=== PATIENT | female | born 1990 | race Caucasian/White ===

== ENCOUNTER 2020-01-22 09:01 | Day surgery (SDC) | payer OTHER, SELFPAY ==
--- NOTE | 2020-01-19 13:06 | PCM.HPOB.BLA ---
- Problem List (1) Sterilization Status: Acute History and Physical Date of Admission: 01/22/20 DATE OF SERVICE: January 05, 2020 ? PROBLEM:?Desires permanent sterilization ? DIAGNOSIS:?Desires permanent sterilization ? PAST SURGICAL HISTORY:? PAST SURGICAL HISTORY PAST SURGICAL HISTORY Procedure Laterality Date ? CHOLECYSTECTOMY ? 03/18/2018 ? ? COLONOSCOPY ? 2002, 2016 ? polypectomy 2002 ? INSERT INTRAUTERINE DEVICE ? 09/16/2014 ? PAST MEDICAL HISTORY:? PAST MEDICAL HISTORY PAST MEDICAL HISTORY Diagnosis Date ? Colon polyp ? ? Depression ? ? SUBJECTIVE:?In a stable relationship of 8 years currently.?.?She is 100% certain that she does not desire children. Her partner is also 100% certain that he does not desire children.? ? SOCIAL HISTORY:? SOCIAL HISTORY Social History ? Tobacco Use ? Smoking status: Never Smoker ? Smokeless tobacco: Never Used Substance Use Topics ? Alcohol use: Yes ? ? Alcohol/week: 5.0 standard drinks ? ? Types: 2 Cans of Beer (12oz) per week ? ? Frequency: 2-3 times a week ? ? Drinks per session: 1 or 2 ? ? Binge frequency: Less than monthly ? ? Comment: 2/week ? Drug use: No ? Allergies: No Known Allergies ? Current Outpatient Medications on File Prior to Visit Medication Sig ? MULTIVITAMIN ORAL Take by mouth. ? buPROPion XL (WELLBUTRIN XL) 300 mg 24 hr tablet Take 1 tablet by mouth once daily. No current facility-administered medications on file prior to visit.? ? ? OBJECTIVE: ? VITALS: BP 120/80 ? Wt 207 lb 3.2 oz (94 kg) ? LMP 12/20/2016 ? BMI 34.48 kg/m? ? HEENT: ?Normocephalic, atraumatic, Mucus membranes moist without lesions. ? NECK: ???Soft and Supple. ?No adenopathy , thyromegaly or bruits. ? SKIN: No lesions. ? CHEST: Clear to auscultation. ?No wheezes or rales. ?Good air exchange. ? HEART: Regular rate and rhythm ?No S3 or S4. ?No gallops or rubs. ? BACK: Nontender with no CVA tenderness. ? ABDOMEN: Soft, non-tender, non-distended, no masses, no hepatosplenomegaly. ? LOWER EXTREMITIES: There was no pitting edema, no palpable cords and no skin changes. ? ? ? ASSESSMENT:?Desires permanent sterilization ? PLAN:?The patient is 100% certain that she does not desire children. She understands the risk of regret. She understands all other forms of control. Discussed laparoscopic bilateral salpingectomy, and IUD removal.?The rationale for the proposed surgery was discussed in addition to risks, benefits, and alternatives. ?General pre- and post-operative care was reviewed. ?Questions were answered. ?After discussion, the patient indicated a desire to proceed with the planned surgery. ? Flu shot given today. ? Kayla Valladares,?DO
[2020-01-22] VITALS (8 sets, daily range): BP systolic 92–123; BP diastolic 66–82; PULSE 59–79; RESP 16; TEMP 36.2–37.2; O2SAT 98–100; BMI 34.0
[2020-01-22 09:22] LABS: Hematocrit 41.6 % (37-47); Hemoglobin 13.4 g/dL (12.0-15.0); Mean Corp Hgb Conc 32.2 g/dL (32-36); Mean Corpuscular Hgb 29.6 pg (27.0-32.0); Mean Platelet Vol. 8.8 fl (6.2-12.0); Platelet Count 272 K/mm3 (150-450); RBC Distribution Width CV 12.5 % (11.6-14.6); RBC Distribution Width SD 41.9 fl (35.1-43.9); Red Blood Count 4.52 M/mm3 (4.2-5.4); White Blood Count 6.7 K/mm3 (4.4-11.0)
[2020-01-22 09:30] LABS: Internal QC Validated? YES +Cl - CLEAR BKGD; Pregnancy, Urine Negative Negative
[2020-01-22] MEDS: Lactated Ringers 1,000 ML 100 ML IV ×2 (09:32→12:16)
--- NOTE | 2020-01-22 10:31 | PCM.DC ---
- Discharge Diagnoses Current Active Problems: Current Active and Chronic Problems Sterilization (Acute) You will use the following diet at home:: No restrictions Your food should be the consistency of: Regular Discharge Activity: May Drive - Once you feel you can slam on a car brake and turn a steerling wheel sharply, May not drive while taking narcotic pain medications. Return to work on:: 01/26/20 May shower in (days): 1 May resume sexual activity in: 1-2 weeks - No tampons, intercourse, tub baths, hot tubs until your bleeding stops Ice area for (Minutes): 15 Weight Bearing Status: Weight bearing as tolerated Lifting Restrictions: No lifting greater than 5-10 lbs for 2 weeks Call your doctor if your incision/area has: Sudden Increased Bleeding, Increased Pain/ Swelling, Increased Redness, Foul Smelling Discharge, Swelling at the incision site Call your doctor if you observe: Fever of 101 or Higher, Inability to urinate, Inability to have a bowel movement, Using more than one pad per hour, Shortness of breath, Dizziness, Fainting spells, Swelling in the ankles, Chest pain, Increased palpitations (irregular heartbeat), Calf discomfort, Uncontrolled pain Suture Line Care: Avoid Pulling/Pushing, Avoid Pinching/Bending Cleanse incision/area with: Soap & Water Allergies/Adverse Reactions: Allergies No Known Allergies Allergy (Verified 01/22/20 09:12) Medications to take at Discharge Mv-Min/Iron/Folic/Calcium/Vitk [Women's Multivitamin Tablet] 1 ea PO DAILY 01/15/20 buPROPion XL [Wellbutrin Xl] 300 mg PO DAILY 01/15/20 Oxycodone HCl/Acetaminophen [Percocet 5/325] 1 tablet PO Q6H PRN PRN 7 Days #5 tablet 01/22/20 The following prescriptions were given: Oxycodone HCl/Acetaminophen [Percocet 5/325] 1 tablet PO Q6H PRN PRN 7 Days #5 tablet PRN Reason: Pain Score 6-10 Transmission Status: Sent to [id number] Orders to be completed after discharge: Type & Screen - PAT ONLY Time Frame: 01/22/20, Facility: [facility], Location: Laboratory Primary Care Physician: Ele Hernandez COMMERCIAL HVAC SERVICE TECHNICIAN, COMMERCIAL HVAC SERVICE TECHNICIAN-C [Primary Care Provider] - Test Results: Test results from this visit will be discussed in further detail at your follow-up appointment, if applicable. Please Follow Up With: Kayla Valladares, When: 1 week
--- NOTE | 2020-01-22 10:35 | FALS_PTH ---
PATIENT: CANDIE HERCULES LOC: [facility] – [place] U#:[id number] AGE/SX: 29/F ROOM: RE01/22/[address]: Dr. Kayla Valladares DO : 1990 BED: DIS: 01/22/2020 SPEC #: [id number] RECD: 01/22/20 13:50 STATUS: GWENDOLYN RAFAT #: [id number] MIR: 01/22/20 10:[address]: Kayla Valladares DEPT: SURGICAL PATHOLOGY RECD BY: Salma Petty ENTERED: 01/23/20 08:28 SP TYPE: FALL TUBES OTHR DR: Ele Hernandez, WEB USER EXPERIENCE STRATEGIST-C Tissues: Fallopian tube Procedures: Surgery Specimen Level II Surgery Specimen Level IV HEADER OPERATION: Laparoscopic salpingectomy PRE-OP DIAGNOSIS: Sterilization TISSUE SUBMITTED: Bilateral fallopian tubes MICROSCOPIC DIAGNOSIS Right and left fallopian tubes, bilateral salpingectomies: Two complete segments of fallopian tubes. One fallopian tube with changes consistent with endometriosis. AM:lisbeth 01/26/20 MICROSCOPIC DESCRIPTION Slides are reviewed. GROSS DESCRIPTION Received in fixative is one container labeled with the patient's name and designated bilateral fallopian tubes. The specimen consists of two fallopian tubes with an average length of 6 cm and has an average diameter of 0.7 cm. Both fallopian tubes have normal fimbriated ends. No mass lesions are identified. Collar Sewer sections are submitted in two cassettes as follows: 1 - one fallopian tube, 2 - the other fallopian tube. / AM:lisbeth 01/23/20 TC:5 CPT: 51090, 96401
[2020-01-22] MEDS: Bupivacaine Mpf 0.5% 30 ML VIAL (10:59)
--- NOTE | 2020-01-22 11:58 | PCM.OPRPT ---
Problem List (1) Sterilization Status: Acute Report of Operation Date of Procedure: 01/22/20 Pre-Operative Diagnosis: Desires permanent sterilization Post-Operative Diagnosis: As above, endometriosis Surgery/Procedure Performed:: Laparoscopic bilateral salpingectomy with removal of paratubal cyst, removal of IUD Description of Surgical Findings:: Normal appearing uterus and bilateral ovaries. The right fallopian tube was normal-appearing. There were adhesions noted of the left fallopian tube. The left fallopian tube was adhered to itself several times, and there was a paratubal cyst noted that ruptured and appeared to be an endometrioma. The left fallopian tube was also adhered to the left ovary. Endometriosis was noted along the left IP ligament. There was endometriosis noted above the uterus and over the bladder. There was endometriosis noted along the right pelvic sidewall. risk control product liability director: other - Adriana Russo MS3 Type of Anesthesia:: General Special Medications: None Specimen's removed: Bilateral fallopian tubes with left paratubal cyst Drains: None Estimated Blood Loss (mL): < 50 cc Fluids Replaced: 1100 cc Description of Procedure: Indications: Requests permanent sterilization. She understands all other options for control. She understands it is permanent and irreversible. She is 100% certain she does not want children. Start time: 1059 Stop time: 1152 The office administrative assistant was present for the entire portion of the case. The office administrative assistant helped by holding the camera and the fallopian tube. The office administrative assistant also helped with the closure of the port sites. Procedure: The patient was taken to the operating room where general anesthesia was induced and adequate. The patient was prepped and draped in the dorsal lithotomy position using yellowfin stirrups. From below a weighted speculum was placed and the anterior lip of the cervix was grasped with a single-tooth tenaculum. Using a ring forceps, the IUD strings were grasped and the IUD was removed easily and noted to be intact. A uterine manipulator was placed. Gloves were then changed and attention was turned to the abdominal portion of the case Marcaine was infiltrated at all port sites. An incision was made infraumbilically to accommodate a 5 mm port. The 5 mm port was inserted using direct visualization with the laparoscope. Once confirmed intraperitoneal, CO2 insufflation was initiated. The patient was then placed in Trendelenburg position. Findings were noted as above. Pictures were taken. A right lateral 5 mm port was placed. A left lateral 5 mm port was placed. The right fallopian tube was followed out to the fimbriated end and elevated out of the pelvis. Using the LigaSure device the right mesosalpinx was serially clamped, cauterized, and transected to the cornua of the uterus to remove the right fallopian tube completely. The left adnexa was noted to have adhesions and a paratubal cyst that ruptured, and appeared to be an endometrioma. The left fallopian tube was adhered to itself several times and also adhered to the left ovary. Using the LigaSure device the adhesions were dissected. The fimbriated end was then elevated out of the pelvis. Using the LigaSure device the mesosalpinx was serially clamped, cauterized, and transected to the cornua of the uterus. The left fallopian tube was removed completely. The fallopian tubes were sent to pathology for review. The pelvis was irrigated. Hemostasis was noted. Jordana was then placed over the adnexa. All ports were removed. The abdomen was exsufflated. The port sites were closed with Monocryl and Dermabond. From below all instruments and the uterine manipulator were removed. A vaginal sweep was performed. Instrument counts were correct. The patient was taken to the recovery room in stable condition. Grafts/Implants Used: None - Complications None - Admit VTE Documentation VTE Present on Admission: No VTE Mechan Device Prophylaxis: SCD's VTE Pharm Prophylaxis ordered?: No
== END 2020-01-22 14:14 | disposition home or self-care (01) ==
LOC: SDC 09:02 → AC 09:02
PROVIDERS: PCP Nurse Practitioner Family; Referring Provider Obstetrics & Gynecology; Visit Provider Obstetrics & Gynecology
PROC: (CPT 58661; principal; 2020-01-22 10:20)
DX: Z30.2 Encounter for sterilization (principal); N80.2 Endometriosis of fallopian tube; N80.3 Endometriosis of pelvic peritoneum; Z30.432 Encounter for removal of intrauterine contraceptive device; Z20.828 Contact with and (suspected) exposure to other viral communicable diseases; F32.9 Major depressive disorder, single episode, unspecified; Z86.010 Personal history of colon polyps; Z90.49 Acquired absence of other specified parts of digestive tract; Z79.899 Other long term (current) drug therapy
CPT/HCPCS: 00940; 58301; 58661; 81025; 85027; 86850; 86900; 86901; 87426; 88302; 88305; C9803; J7120; J2405